=== PATIENT | male | born 1965 | race Caucasian/White ===

== ENCOUNTER → 2017-03-17 | Outpatient (CLI) | payer OTHER | LOC: FIMAGING 13:12 | PROVIDERS: ATTEND Podiatrist Foot & Ankle Surgery | DX: M21.70 Unequal limb length (acquired), unspecified site (principal) ==

== ENCOUNTER 2017-12-27 06:42 | Emergency (ER) | payer OTHER ==
[2017-12-27] MEDS ORDERED: NS 1,000 ML IV ONE (07:25)
[2017-12-27] MEDS ORDERED: KETOROLAC 15 MG/1 ML SDV IVP ONE (07:26)
--- NOTE | 2017-12-27 07:30 | EDPHY ---
H & P Stated Complaint: LOW BACK PAIN FOR PAST WK, DENIES TRAUMA Time Seen by Provider: 12/27/17 07:17 HPI/ROS: CHIEF COMPLAINT: Left-sided back pain HISTORY OF PRESENT ILLNESS: 52-year-old male presents with left-sided back pain. Onset of nausea 1 week ago, fairly persistent since then. This morning he awoke with severe left flank pain. The flank pain waxes and wanes and is currently moderate. The pain radiates to the LLQ. No groin pain and no urinary symptoms. No prior similar symptoms. He is especially concerned about a herniated lumbar disc, though the pain does not change with movement. No radicular pain, numbness or weakness. REVIEW OF SYSTEMS: RLQ pain yesterday, resolved today. Otherwise, complete 10 point ROS negative except at noted in the HPI - Personal History Current Tetanus/Diphtheria Vaccine: Yes Current Tetanus Diphtheria and Acellular Pertussis (TDAP): Yes - Medical/Surgical History Hx Asthma: No Hx Chronic Respiratory Disease: No Hx Diabetes: No Hx Cardiac Disease: No Hx Renal Disease: No Hx Cirrhosis: No Hx Alcoholism: No Hx HIV/AIDS: No Hx Splenectomy or Spleen Trauma: No Other PMH: LAMINECTOMY, SHOULDER , EYE SURGERY , - Social History Smoking Status: Never smoked - Physical Exam Exam: General Appearance: Alert, pleasant Eyes: Pupils equal and round, no conjunctival pallor or injection ENT, Mouth: Mucous membranes moist Neck: Normal inspection Respiratory: Lungs are clear to auscultation Cardiovascular: Regular rate and rhythm Gastrointestinal: Abdomen is soft, suprapubic and left upper quadrant tenderness, no peritoneal signs Back: Left CVA tenderness Neurological: A&O, nonfocal, normal gait Skin: Warm and dry, no rash Extremities: Nontender, no pedal edema Psychiatric: Mood and affect normal Constitutional: Initial Vital Signs Temperature (C) 36.3 C 12/27/17 06:46 Heart Rate 44 L 12/27/17 06:46 Respiratory Rate 18 12/27/17 06:46 Blood Pressure 163/105 H 12/27/17 06:46 O2 Sat (%) 100 12/27/17 06:46 O2 Delivery Mode Room Air Allergies/Adverse Reactions: hydrocortisone Allergy (Verified 12/27/17 21:11) Home Medications: Medication Instructions Recorded Acyclovir 800 mg PO 12/27/17 Allopurinol [Allopurinol 100 MG 100 mg PO DAILY 12/27/17 (*)] Hydrocodone/APAP 5/325 [[place] 1 - 2 tab PO Q4H PRN #10 tab 12/27/17 5/325] Loratadine [Claritin] 10 mg PO 12/27/17 Sertraline HCl [Zoloft 50mg (*)] 50 mg PO DAILY 12/27/17 Medical Decision Making - Diagnostics Imaging Results: Abdomen/Pelvis CT 12/27/17 07:26 Impression: Distal left ureteral calculus with associated obstructive uropathy. Bilateral nephrolithiasis is also noted. Results called and discussed with SUKHWINDER GALVAN M.D. on 12/27/2017 at 8:26 Imaging: Discussed imaging studies w/ call center receptionist Radiologist, I viewed and interpreted images myself ED Course/Re-evaluation: This patient presents with left-sided flank pain, consistent with renal colic. CT scan of the abdomen and pelvis ordered. Toradol 15 mg IV given. 8:45 a.m.-CT scan results discussed with the patient. UA reveals hematuria, no evidence of UTI. He is currently pain free. Abdomen is soft nontender. The pain resolved after the initial dose of Toradol. The Toradol may be masking his pain or he may have passed a kidney stone. The patient understands and will take ibuprofen as needed for pain. Follow-up instructions given. Differential Diagnosis: Differential diagnosis includes though it is not limited to appendicitis, cholecystitis, diverticulitis, pyelonephritis, bowel perforation, small bowel obstruction. - Data Points Laboratory Results: Laboratory Results 12/27/17 07:30 12/27/17 07:30 Medications Given: Discontinued Medications Sodium Chloride (Ns) 1,000 mls @ 0 mls/hr IV EDNOW ONE; Wide Open PRN Reason: Protocol Stop: 12/27/17 07:26 Last Admin: 12/27/17 07:33 Dose: 1,000 mls Ketorolac Tromethamine (Toradol) 15 mg IVP EDNOW ONE Stop: 12/27/17 07:27 Last Admin: 12/27/17 07:34 Dose: 15 mg Departure - Departure Disposition: Home, Routine, Self-Care Clinical Impression: Calculus of left kidney, Renal colic on left side Condition: Good Instructions: Ureteral Stones (ED) Additional Instructions: Ibuprofen 600 mg 3 times daily while the pain persists. Strain urine. Return for severe pain, vomiting or any concerns. Referrals: Rolando Duran MD [Primary Care Provider] - As per Instructions Prescriptions: Hydrocodone/APAP 5/325 [[place] 5/325] 1 - 2 tab PO Q4H PRN #10 tab PRN Reason: Pain, Moderate
[2017-12-27 07:49] LABS: PLATELET COUNT 219 10^3/uL (150-400)
[2017-12-27 09:10] VITALS: BP 118/62
== END 2017-12-27 09:08 | disposition home or self-care (01) ==
DX: N20.0 Calculus of kidney (principal); E86.9 Volume depletion, unspecified
CPT/HCPCS: 96374; J1885

== ENCOUNTER 2017-12-27 21:06 | Emergency (ER) | payer OTHER ==
[2017-12-27] MEDS ORDERED: HYDROmorphONE/DILAUDID 2 MG/ML INJ IVP ONE (21:28)
[2017-12-27] MEDS ORDERED: NS 1,000 ML IV ONE (21:28)
[2017-12-27] MEDS ORDERED: KETOROLAC 30 MG/1 ML SDV IVP ONE (21:28)
[2017-12-27] MEDS ORDERED: ONDANSETRON 4 MG/2 ML VIAL IVP ONE (21:28)
--- NOTE | 2017-12-27 21:30 | EDPHY ---
H & P Time Seen by Provider: 12/27/17 21:18 HPI/ROS: CHIEF COMPLAINT: Left-sided flank pain. HISTORY OF PRESENT ILLNESS: The patient was seen this morning in our emergency department for renal colic. He had CT scan performed that showed a 7 x 4 mm distal left ureteral calculus an additional multiple renal calculi bilaterally. He felt better and was discharged home but started having symptoms again around 8:00 p.m. while he was on the way to pharmacy to get pain medication prescription from this morning filled. Presents with severe left-sided flank pain which radiates around to his lower left abdomen. Waxing and waning, is severe. Not associated with fever chills urinary symptoms or trauma. Has nausea but no vomiting. Identical to previous symptoms he was seen for this morning. REVIEW OF SYSTEMS: Eye: no change in vision ENT: no sore throat Cardiac: no chest pain or syncope Pulmonary: no cough or SOB Abdomen: HPI Musculoskeletal: HPI Skin: no rash Neuro: no headache Constitutional: no fever : no urinary symptoms A comprehensive 10 point review of systems is otherwise negative aside from elements mentioned in the history of present illness. PAST MEDICAL HISTORY: Laminectomy and shoulder surgery, herpes on acyclovir, gout Social history: Nonsmoker General Appearance: Alert and conversant, cooperative. Moderately uncomfortable. Eyes: No scleral icterus. ENT, Mouth: Normal mucous membranes. Respiratory: Normal respiratory effort, breath sounds equal, lungs are clear to auscultation. Cardiovascular: Regular rate and rhythm. Gastrointestinal: Abdomen is soft and non tender. Normal male . Neurological: Alert, face symmetric, normal motor and sensory in extremities. Skin: Warm and dry, no rashes. Musculoskeletal: No peripheral edema. Psychiatric: Not agitated. Emergency Department course/MDM: Creatinine was 1.2 at 7:30 a.m.. Urinalysis showed red blood cells and no white blood cells. Discussed this could be recurrent pain from the stone seen on CT, or a one dropping down from the known stones in his left kidney on CT. He says he thinks he passed one and caught it in the strainer between then and now. Dilaudid 0.5, Zofran 4 mg, Toradol 15 mg, IV normal saline 2 L. 2219: Comfortable now, home with oxycodone and Zofran pre PACs, mandatory follow-up with Urology this week as maximum diameter of the stone on CT was 7 mm , was warned that it is possible he may need procedure to extract the stone if he does not pass spontaneously. Smoking Status: Never smoked Constitutional: Initial Vital Signs Temperature (C) 36.4 C 12/27/17 21:11 Heart Rate 51 L 12/27/17 21:11 Respiratory Rate 20 12/27/17 21:11 Blood Pressure 146/100 H 12/27/17 21:11 O2 Sat (%) 100 12/27/17 21:11 O2 Delivery Mode Room Air Allergies/Adverse Reactions: hydrocortisone Allergy (Verified 12/27/17 21:11) Home Medications: Medication Instructions Recorded Acyclovir 800 mg PO 12/27/17 Allopurinol [Allopurinol 100 MG 100 mg PO DAILY 12/27/17 (*)] Hydrocodone/APAP 5/325 [[place] 1 - 2 tab PO Q4H PRN #10 tab 12/27/17 5/325] Loratadine [Claritin] 10 mg PO 12/27/17 Sertraline HCl [Zoloft 50mg (*)] 50 mg PO DAILY 12/27/17 Medical Decision Making Differential Diagnosis: Differential diagnosis considered for flank pain including but not limited to musculoskeletal causes, kidney stone, pyelonephritis, shingles, and intra- abdominal causes such as diverticulitis and appendicitis. - Data Points Medications Given: Discontinued Medications Hydromorphone HCl (Dilaudid) 0.5 mg IVP EDNOW ONE Stop: 12/27/17 21:29 Last Admin: 12/27/17 21:36 Dose: 0.5 mg Sodium Chloride (Ns) 1,000 mls @ 0 mls/hr IV EDNOW ONE; Wide Open PRN Reason: Protocol Stop: 12/27/17 21:29 Last Admin: 12/27/17 21:34 Dose: 1,000 mls Ketorolac Tromethamine (Toradol) 15 mg IVP EDNOW ONE Stop: 12/27/17 21:29 Last Admin: 12/27/17 21:35 Dose: 15 mg Ondansetron HCl (Zofran) 4 mg IVP EDNOW ONE Stop: 12/27/17 21:29 Last Admin: 12/27/17 21:35 Dose: 4 mg Ondansetron HCl (Zofran Odt 4 Mg Prepack#2) 1 btl TAKEHOME EDNOW ONE Stop: 12/27/17 22:19 Last Admin: 12/27/17 22:28 Dose: 1 btl Oxycodone/Acetaminophen (Percocet 5/325mg Prepack#4) 1 btl TAKEHOME EDNOW ONE Stop: 12/27/17 22:19 Last Admin: 12/27/17 22:27 Dose: 1 btl Departure - Departure Disposition: Home, Routine, Self-Care Clinical Impression: Renal colic on left side Condition: Good Instructions: Oxycodone/Acetaminophen (By mouth), Ondansetron (By mouth), Renal Colic (ED) Referrals: Rolando Duran MD [Primary Care Provider] - As per Instructions Werner Rousseau MD [Medical Doctor] - 2-3 days, if not improved (this week in the office)
[2017-12-27] MEDS ORDERED: HYDROmorphONE/DILAUDID 1 MG/ML INJ ONE (21:32)
[2017-12-27] MEDS ORDERED: ONDANSETRON 4MG PREPACK#2 BTL TAKEHOME ONE (22:18)
[2017-12-27] MEDS ORDERED: OXYCODONE/APAP 5/325MG PREPACK#4 BTL TAKEHOME ONE (22:18)
[2017-12-27 22:31] VITALS: BP 139/73
== END 2017-12-27 22:29 | disposition home or self-care (01) ==
DX: N23 Unspecified renal colic (principal); E86.9 Volume depletion, unspecified
CPT/HCPCS: 96374; J1170; J1885; J2405

== ENCOUNTER 2017-12-29 13:44 | Observation (INO) | payer OTHER ==
[2017-12-29] MEDS ORDERED: LIDOCAINE 2% JELLY 20 ML (UROJECT) ONE (14:02)
[2017-12-29] MEDS ORDERED: IOPAMIDOL (ISOVUE-300) 150 ML BTL ONE (14:02)
[2017-12-29] MEDS ORDERED: OPIUM/BELLADONNA ALKALO SUPP PR ONE (14:02)
[2017-12-29] MEDS ORDERED: LR 1,000 ML IV ONE (14:06)
[2017-12-29] MEDS ORDERED: CEFAZOLIN 2 GM/DEXTROSE/100 ML BAG IV ONE (14:21)
--- NOTE | 2017-12-29 14:21 | PDANEPAE ---
ANE History of Present Illness 52 yo male with L ureteral stone for ureteroscopy. ANE Past Medical History - Cardiovascular History Hx Hypertension: No Hx Arrhythmias: No Hx Chest Pain: No Hx CHF / Valvular Disease: No Hx Palpitations: No - Pulmonary History Hx COPD: No Hx Asthma/Reactive Airway Disease: No Hx Recent Upper Respiratory Infection: No Hx Oxygen in Use at Home: No Hx Sleep Apnea: No - Endocrine History Hx Diabetes: No Hypothyroid: No Hyperthyroid: No Obesity: no - Renal History Hx Renal Disorders: Yes - Liver History Hx Hepatic Disorders: No - Neurological & Psychiatric Hx Hx Neurological and Psychiatric Disorders: Yes Neurological / Psychiatric History Comment: OCD/anxiety - Cancer History Hx Cancer: No - Congenital Disorder History Hx Congenital Disorders: No - GI History GERD: no Hx Gastrointestinal Disorders: No - Other Health History Other Health History: gout, HSV - Chronic Pain History Chronic Pain: No ANE Review of Systems Review of Systems: - Systems Constitutional: Reports: no symptoms Cardiac: Reports: no symptoms Respiratory: Reports: no symptoms Gastrointestinal: Reports: no symptoms ANE Patient History - Allergies Allergies/Adverse Reactions: hydrocortisone Allergy (Verified 12/29/17 14:09) - Home Medications Home Medications: Acyclovir 800 mg PO 12/27/17 [Last Taken Unknown] Allopurinol [Allopurinol 100 MG (*)] 100 mg PO DAILY 12/27/17 [Last Taken ] Loratadine [Claritin] 10 mg PO 12/27/17 [Last Taken Unknown] Sertraline HCl [Zoloft 50mg (*)] 50 mg PO DAILY 12/27/17 [Last Taken Unknown] - NPO status NPO Since - Liquids (Date): 12/29/17 NPO Since - Liquids (Time): 12:30 - Anes Hx Anes Hx: no prior problems - Smoking Hx Smoking Status: Never smoked Marijuana use: No - Alcohol Use Alcohol Use: Rarely ANE Labs/Vital Signs - Vital Signs Vital Signs: reviewed preoperatively; see RN documention for details ANE Physical Exam - Airway Neck exam: FROM Mallampati Score: Class 2 Mouth exam: normal dental/mouth exam - Pulmonary Pulmonary: clear to auscultation - Cardiovascular Cardiovascular: regular rate and rhythym - ASA Status ASA Status: II ANE Anesthesia Plan Anesthesia Plan: GA w LMA
[2017-12-29] MEDS ORDERED: LIDOCAINE 2% 5 ML SDV ONE (14:26)
[2017-12-29] MEDS ORDERED: DEXAMETHASONE 4 MG/ML VIAL ONE (14:26)
[2017-12-29] MEDS ORDERED: fentaNYL 100 MCG/2 ML INJ ONE (14:26)
[2017-12-29] MEDS ORDERED: PROPOFOL/EMULSION 500 MG/50 ML BOTTLE IV ONE (14:26)
[2017-12-29] MEDS ORDERED: ceFAZolin 2 GM/DEXTROSE 100 ML IV ONE (14:29)
--- NOTE | 2017-12-29 14:29 | PDHPUP ---
History & Physical Update H&P update statement: This history and physical update is based on an assessment of the patient which was completed after admission or registration (within 24 hours), but prior to the surgery/procedure. H&P update: H&P reviewed & patient examined, no change in patient's condition since H&P completed
[2017-12-29] MEDS ORDERED: NALOXONE HCL 0.4 MG/ML INJ IVP PRN (17:28)
[2017-12-29] MEDS ORDERED: LR 500 ML IV PRN (17:28)
[2017-12-29] MEDS ORDERED: oxyCODONE IR 5 MG TAB PO PRN (17:28)
[2017-12-29] MEDS ORDERED: DIAZEPAM 5 MG/ML 1 ML SYR IVP PRN (17:28)
[2017-12-29] MEDS ORDERED: ALBUTEROL 3 ML DEYVIAL IH PRN (17:28)
[2017-12-29] MEDS ORDERED: fentaNYL 100 MCG/2 ML INJ IVP PRN (17:28)
[2017-12-29] MEDS ORDERED: ONDANSETRON 4 MG/2 ML VIAL IVP PRN ×2 (17:28→21:25)
--- NOTE | 2017-12-29 17:32 | POSTANESTH ---
Post Anesthetic Evaluation Cardiovascular Status: Normal, Stable Respiratory Status: Normal, Stable Level of Consciousness/Mental Status: Can Participate in Eval, Moderately Sleepy Pain Control: Adequate, Prn Tx Ordered Nausea/Vomiting Control: Adequate, Prn Tx Ordered Complications Possibly Related to Anesthesia: None Noted
--- NOTE | 2017-12-29 21:21 | SOAPPROG ---
SOAP Progress Note Assessment/Plan: Patient s/p Left URS, laser, stent. Having low O2 sats in PACU. Admit to obs. Continue to wean O2 as able. Gen diet. PRN pain meds. Call Dr. Flores if questions. Cell [phone] 12/29/17 21:18 Objective: Vital Signs Temp Pulse Resp BP Pulse Ox 36.7 C 63 16 129/80 H 93 12/29/17 17:41 12/29/17 19:12 12/29/17 19:12 12/29/17 19:29 12/29/17 20:30 12/28/17 12/29/17 12/30/17 05:59 05:59 05:59 Intake Total 2420 Balance 2420 - Pending Discharge Pending Discharge Within 24 Hours: Yes Pending Discharge Date: 12/30/17 Pending Discharge Time: 11:00
[2017-12-29] MEDS ORDERED: KETOROLAC 30 MG/1 ML SDV IVP PRN (21:23)
[2017-12-29] MEDS ORDERED: OXYCODONE/APAP 5/325 TAB PO PRN (21:23)
[2017-12-29] MEDS: SENNOSIDES/DOCUSATE SODIUM TAB PO SCH (22:02)
[2017-12-29] MEDS: TAMSULOSIN HCL 0.4 MG CAP PO SCH (22:02)
[2017-12-30 07:57] VITALS: BP 132/77
[2017-12-30] MEDS: TAMSULOSIN HCL 0.4 MG CAP PO SCH (09:04)
[2017-12-30] MEDS: SENNOSIDES/DOCUSATE SODIUM TAB PO SCH (09:04)
== END 2017-12-30 10:23 | disposition home or self-care (01) ==
LOC: FSGY 13:44 → F1N 19:06
PROVIDERS: ADMIT Urology; ATTEND Urology
DX: N20.1 Calculus of ureter (principal); N20.0 Calculus of kidney; M10.9 Gout, unspecified; J45.909 Unspecified asthma, uncomplicated; Z84.1 Family history of disorders of kidney and ureter
CPT/HCPCS: 52356; 76001; C1726; C1758; C1769; C1894; G0378; 82365-90; C2625; J0690; J1100; J1885; J2405; J2704; J3010; Q9967

== ENCOUNTER 2018-01-02 16:12 | Emergency (ER) | payer OTHER ==
--- NOTE | 2018-01-02 16:34 | EDPHY ---
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 He is s/p Left URS, laser, stent placement on December 29. This was performed at [facility] by Dr. Germain. The patient has developed some colicky severe left flank pain over the past day. He did take some Toradol and Zofran prior to his arrival in the emergency department. His pain was a 10/10 but is now currently a 1/10. The patient denies any fever. He denies any history of heavy lifting or traumatic injury. The patient reports he has had resolved hematuria since his procedure. REVIEW OF SYSTEMS: A comprehensive 10 point review of systems is otherwise negative aside from elements mentioned in the history of present illness. Source: Patient - Medical/Surgical History Hx Asthma: No Hx Chronic Respiratory Disease: No Hx Diabetes: No Hx Cardiac Disease: No Hx Renal Disease: No Hx Cirrhosis: No Hx Alcoholism: No Hx HIV/AIDS: No Hx Splenectomy or Spleen Trauma: No Other PMH: LAMINECTOMY, SHOULDER , EYE SURGERY , - Social History Smoking Status: Never smoked - Physical Exam Exam: General Appearance: Alert, no distress Eyes: Pupils equal and round no pallor or injection ENT, Mouth: Mucous membranes moist Respiratory: There are no retractions, lungs are clear to auscultation Cardiovascular: Regular rate and rhythm Gastrointestinal: Mild left CVA tenderness, no anterior abdominal tenderness Neurological: 5/5 strength all 4 extremities Skin: Warm and dry, no rashes Musculoskeletal: Neck is supple nontender Extremities: symmetrical, full range of motion Constitutional: Initial Vital Signs Temperature (C) 37.0 C 01/02/18 16:14 Heart Rate 54 L 01/02/18 16:14 Respiratory Rate 28 H 01/02/18 16:14 Blood Pressure 132/90 H 01/02/18 16:14 O2 Sat (%) 98 01/02/18 16:14 O2 Delivery Mode Room Air Allergies/Adverse Reactions: hydrocortisone Allergy (Verified 12/29/17 14:09) Home Medications: Medication Instructions Recorded Hydrocodone/APAP 5/325 [[place] 1 - 2 tab PO Q4H PRN #10 tab 12/27/17 5/325] Loratadine [Claritin] 10 mg PO DAILY 12/27/17 Acyclovir [Zovirax 400 mg (*)] 400 mg PO DAILY 12/29/17 Allopurinol [Zyloprim] 300 mg PO HS 12/29/17 Ibuprofen [Motrin (*)] 200 - 600 mg PO Q6H PRN 12/29/17 Olopatadine HCl [Olopatadine HCl] 1 drop EACHEYE DAILY PRN 12/29/17 Ondansetron Odt [Zofran Odt 4 mg 4 mg PO Q4 PRN 12/29/17 (*)] Sertraline HCl [Zoloft 100mg (*)] 100 mg PO HS 12/29/17 Tamsulosin HCl [Flomax 0.4 MG (*)] 0.4 mg PO DAILY 12/29/17 Medical Decision Making - Diagnostics Imaging Results: CT abdomen pelvis without IV contrast: Images reviewed by myself and discussed with radiologist Dr. Morrison. There is no evidence of a ureteral injury, hydronephrosis or other significant intra-abdominal or retroperitoneal finding. . ED Course/Re-evaluation: I reviewed the patient's past medical records and procedure note from December 29. The patient was taken for CT scan of the abdomen pelvis without contrast which demonstrates a stent that is in place without evidence of urethral injury. There is no evidence of any left-sided urinary obstruction. The patient has normal laboratory studies in the emergency department. The patient took oral pain medications prior to arrival which resulted in significant improvement of his pain. Patient has nothing to suggest pyelonephritis given his lack of fever and significant flank pain. The patient is scheduled to see his urologist this . At this point time I do feel the patient can be discharged home as he has no evidence of an obvious surgical complication is well-appearing. Differential Diagnosis: Differential diagnosis considered includes nephrolithiasis, ureteral injury, hydronephrosis, pyelonephritis - Data Points Laboratory Results: Laboratory Results 01/02/18 16:30 01/02/18 16:30 01/02/18 01/02/18 16:30 16:30 WBC 9.01 10^3/uL 10^3/uL (3.80-9.50) RBC 4.61 10^6/uL 10^6/uL (4.40-6.38) Hgb 14.7 g/dL g/dL (13.7-17.5) Hct 43.1 % % (40.0-51.0) MCV 93.5 fL fL (81.5-99.8) MCH 31.9 pg pg (27.9-34.1) MCHC 34.1 g/dL g/dL (32.4-36.7) RDW 12.4 % % (11.5-15.2) Plt Count 228 10^3/uL 10^3/uL (150-400) MPV 9.8 fL fL (8.7-11.7) Neut % (Auto) 51.2 % % (39.3-74.2) Lymph % (Auto) 25.3 % % (15.0-45.0) [place] % (Auto) 6.1 % % (4.5-13.0) Eos % (Auto) 16.4 % H % (0.6-7.6) Baso % (Auto) 0.8 % % (0.3-1.7) Nucleat RBC Rel Count 0.0 % % (0.0-0.2) Absolute Neuts (auto) 4.61 10^3/uL 10^3/uL (1.70-6.50) Absolute Lymphs (auto) 2.28 10^3/uL 10^3/uL (1.00-3.00) Absolute Monos (auto) 0.55 10^3/uL 10^3/uL (0.30-0.80) Absolute Eos (auto) 1.48 10^3/uL H 10^3/uL (0.03-0.40) Absolute Basos (auto) 0.07 10^3/uL 10^3/uL (0.02-0.10) Absolute Nucleated RBC 0.00 10^3/uL 10^3/uL (0-0.01) Immature Gran % 0.2 % % (0.0-1.1) Immature Gran # 0.02 10^3/uL 10^3/uL (0.00-0.10) Sodium 143 mEq/L mEq/L (135-145) Potassium 4.2 mEq/L mEq/L (3.3-5.0) Chloride 103 mEq/L mEq/L (97-110) Carbon Dioxide 28 mEq/l mEq/l (22-31) Anion Gap 12 mEq/L mEq/L (8-16) BUN 21 mg/dL mg/dL (7-23) Creatinine 1.1 mg/dL mg/dL (0.7-1.3) Estimated GFR > 60 Glucose 88 mg/dL mg/dL (70-100) Calcium 9.2 mg/dL mg/dL (8.5-10.4) Medications Given: Discontinued Medications Sodium Chloride (Ns) 1,000 mls @ 0 mls/hr IV EDNOW ONE; Wide Open PRN Reason: Protocol Stop: 01/02/18 16:36 Last Admin: 01/02/18 16:47 Dose: 1,000 mls Departure - Departure Disposition: Home, Routine, Self-Care Clinical Impression: Calculus of left kidney Condition: Good Instructions: Urethral Stent Placement (DC) Additional Instructions: 1. Your CT scan demonstrates no evidence of an obstruction, stent migration or injury to the ureter. 2. Continue your regular outpatient pain medications as prescribed. 3. Please follow up with your urologist as scheduled this week. 4. Please return to the ED for severe intractable pain, fever, vomiting or other concerns. Referrals: Rolando Duran MD [Primary Care Provider] - As per Instructions
[2018-01-02] MEDS ORDERED: NS 1,000 ML IV ONE (16:35)
[2018-01-02 16:41] LABS: PLATELET COUNT 228 10^3/uL (150-400)
[2018-01-02 17:33] VITALS: BP 129/79
== END 2018-01-02 17:50 | disposition home or self-care (01) ==
DX: N20.0 Calculus of kidney (principal); E86.9 Volume depletion, unspecified

== ENCOUNTER 2018-01-06 08:00 | Day surgery (SDC) | payer OTHER ==
[2018-01-06] MEDS ORDERED: LR 1,000 ML IV ONE (08:17)
[2018-01-06] MEDS ORDERED: ceFAZolin 2 GM/DEXTROSE 100 ML IV ONE (08:20)
--- NOTE | 2018-01-06 08:51 | PDANEPAE ---
ANE History of Present Illness Ureteroscopy and stone removal, L kidney ANE Past Medical History - Cardiovascular History Hx Hypertension: No Hx Arrhythmias: No Hx Chest Pain: No Hx Coronary Artery / Peripheral Vascular Disease: No Hx CHF / Valvular Disease: No Hx Palpitations: No - Pulmonary History Hx COPD: No Hx Asthma/Reactive Airway Disease: No Hx Recent Upper Respiratory Infection: No Hx Oxygen in Use at Home: No Hx Sleep Apnea: No Sleep Apnea Screening Result - Last Documented: Negative Pulmonary History Comment: bad allergies enviromental - Neurologic History Hx Cerebrovascular Accident: No Hx Seizures: No Hx Dementia: No - Endocrine History Hx Diabetes: No Obesity: no - Renal History Hx Renal Disorders: No Renal History Comment: kidney stone - Liver History Hx Hepatic Disorders: No - Neurological & Psychiatric Hx Hx Neurological and Psychiatric Disorders: Yes Neurological / Psychiatric History Comment: OCD/anxiety - Cancer History Hx Cancer: No - Congenital Disorder History Hx Congenital Disorders: No - GI History GERD: no Hx Gastrointestinal Disorders: No - Other Health History Other Health History: gout, HSV - Chronic Pain History Chronic Pain: No - Surgical History Prior Surgeries: strabismus. r shoulder labrum tear ANE Review of Systems Review of Systems: - Exercise capacity METS (RN): 5 METS ANE Patient History - Allergies Allergies/Adverse Reactions: hydrocortisone Allergy (Verified 01/04/18 16:49) Hives - Home Medications Home Medications: Loratadine [Claritin] 12/27/17 [Last Taken 01/05/18] Acyclovir [Zovirax 400 mg (*)] 12/29/17 [Last Taken 01/05/18] Allopurinol [Zyloprim] 12/29/17 [Last Taken 01/04/18] Ibuprofen [Motrin (*)] 12/29/17 [Last Taken 12/28/17] Olopatadine HCl [Olopatadine HCl] 12/29/17 [Last Taken 01/04/18] Ondansetron Odt [Zofran Odt 4 mg (*)] 12/29/17 [Last Taken 01/04/18] Sertraline HCl [Zoloft 100mg (*)] 12/29/17 [Last Taken 01/04/18] Tamsulosin HCl [Flomax 0.4 MG (*)] 12/29/17 [Last Taken 01/05/18] Hydrocodone/APAP 5/325 [[place] 5/325] 01/04/18 [Last Taken Unknown] - NPO status NPO Since - Liquids (Date): 01/05/18 NPO Since - Liquids (Time): 22:00 NPO Since - Solids (Date): 01/05/18 NPO Since - Solids (Time): 20:30 - Anes Hx Hx Anesthesia Complications (with details): low oxygen levels post anesthesia - Smoking Hx Smoking Status: Never smoked Marijuana use: No - Alcohol Use Alcohol Use: Other (1-2 drinks/week) - Family Anes Hx Family Anes Hx: none Family Hx Anesthesia Complications: none ANE Labs/Vital Signs - Vital Signs Blood Pressure: 129/93 Heart Rate: 58 Respiratory Rate: 16 O2 Sat (%): 93 Height: 185.42 cm Weight: 86.183 kg ANE Physical Exam - Airway Neck exam: FROM Mallampati Score: Class 1 Mouth exam: normal dental/mouth exam - Pulmonary Pulmonary: clear to auscultation - Cardiovascular Cardiovascular: regular rate and rhythym - ASA Status ASA Status: II ANE Anesthesia Plan Anesthesia Plan: GA w LMA
[2018-01-06] MEDS ORDERED: MIDAZOLAM 2 MG/2 ML VIAL IVP ONE (08:57)
[2018-01-06] MEDS ORDERED: LIDOCAINE 2% JELLY 20 ML (UROJECT) ONE (09:00)
[2018-01-06] MEDS ORDERED: IOPAMIDOL (ISOVUE-M 300) 15 ML VIAL ONE (09:01)
[2018-01-06] MEDS ORDERED: OPIUM/BELLADONNA ALKALO SUPP PR ONE (09:01)
[2018-01-06] MEDS ORDERED: PROPOFOL 200 MG/20 ML VIAL ONE ×3 (09:06→10:24)
[2018-01-06] MEDS ORDERED: fentaNYL 100 MCG/2 ML INJ ONE (09:06)
--- NOTE | 2018-01-06 09:32 | PDGENHP ---
History and Physical - Chief Complaint bilateral stones - History of Present Illness Bilateral nephrolithiasis, here for stone treatment.s/p L URS, laser for obs distal stone. Has residual left stones and yet to be treated R stones. No complaints. PMH/PSH/SG/FH reviewed ROS 10 pt ROS performed, as stated in HPI,otherwise neg PE AFVSS gen NAD CV regular Lungs Normal effort Abd soft Ext warm History Information - Allergies/Home Medication List Allergies/Adverse Reactions: hydrocortisone Allergy (Verified 01/04/18 16:49) Hives Home Medications: Loratadine [Claritin] 12/27/17 [Last Taken 01/05/18] Acyclovir [Zovirax 400 mg (*)] 12/29/17 [Last Taken 01/05/18] Allopurinol [Zyloprim] 12/29/17 [Last Taken 01/04/18] Ibuprofen [Motrin (*)] 12/29/17 [Last Taken 12/28/17] Olopatadine HCl [Olopatadine HCl] 12/29/17 [Last Taken 01/04/18] Ondansetron Odt [Zofran Odt 4 mg (*)] 12/29/17 [Last Taken 01/04/18] Sertraline HCl [Zoloft 100mg (*)] 12/29/17 [Last Taken 01/04/18] Tamsulosin HCl [Flomax 0.4 MG (*)] 12/29/17 [Last Taken 01/05/18] Hydrocodone/APAP 5/325 [[place] 5/325] 01/04/18 [Last Taken Unknown] - Social History Smoking Status: Never smoked Alcohol Use: Other (1-2 drinks/week) Review of Systems Review of Systems: ROS: 10pt was reviewed & negative except for what was stated in HPI & below Physical Exam Physical Exam: Temp Pulse Resp BP Pulse Ox 37.0 C 58 L 16 129/93 H 93 01/06/18 08:23 01/06/18 08:55 01/06/18 08:55 01/06/18 08:55 01/06/18 08:55 Constitutional: no apparent distress Respiratory: no respiratory distress Gastrointestinal: soft, non-tender abdomen Genitourinary: no bladder fullness Skin: warm Neurologic: AAOx3 Psychiatric: interacting appropriately Assessment & Plan Assessment: A/P Bilateral URS, laser, stent. Ancef. Rationale/risks/benefits discussed, he desires to proceed. Consent received.
[2018-01-06] MEDS ORDERED: HYDROmorphONE/DILAUDID 1 MG/ML INJ IVP PRN (10:09)
[2018-01-06] MEDS ORDERED: ACETAMINOPHEN 500 MG TAB PO PRN (10:09)
[2018-01-06] MEDS ORDERED: fentaNYL 100 MCG/2 ML INJ IVP PRN (10:09)
[2018-01-06] MEDS ORDERED: HYDROCODONE/APAP 5/325 TAB PO PRN (10:09)
[2018-01-06] MEDS ORDERED: ONDANSETRON 4 MG/2 ML VIAL IVP PRN (10:09)
[2018-01-06] MEDS ORDERED: NALOXONE HCL 0.4 MG/ML INJ IVP PRN (10:09)
[2018-01-06] MEDS ORDERED: ONDANSETRON 4 MG/2 ML VIAL ONE (10:34)
--- NOTE | 2018-01-06 11:17 | POSTOPPROG ---
Post Op Note Date of Operation: 01/06/18 Surgeon: Tati Flores Hr Representative: N/A Anesthesiologist: Dr. Barillas Pre-op Diagnosis: bilateral nephrolithiasis Post-op Diagnosis: same, right tortuous mid/proximal ureter Indication: bilateral nephrolithiasis Procedure: cysto, bilateral ureteroscopy, left basket ext stones, RGP, stents Findings: residual left nephrolithiasis extracted, right tortuous ureter Inf/Abcess present in the surg proc area at time of surgery?: No Depth: Superfical (Skin SQ) EBL: Minimal Complications: None, patient tolerated well. Specimen(s): left stone fragments
[2018-01-06] MEDS ORDERED: KETOROLAC 15 MG/1 ML SDV ONE (12:30)
--- NOTE | 2018-01-06 12:31 | GOP ---
[f rep st] OPERATIVE REPORT DATE OF OPERATION: 01/06/2018 SURGEON: Tati Flores MD ANESTHESIOLOGIST: Rolando Barillas MD. PREOPERATIVE DIAGNOSIS: Bilateral nephrolithiasis. POSTOPERATIVE DIAGNOSIS: Bilateral nephrolithiasis along with right torturous mid proximal ureter. PROCEDURE PERFORMED: Cystoscopy, bilateral retrograde pyelogram, left bilateral ureteroscopy, left basket extraction of stone, bilateral stent placement, 6-Samoan multivariable. FINDINGS: Left residual stones were extracted and sent to Pathology. The right ureter was very torturous mid and proximal, and I was not able to gain access to the kidney with a 12/14-Samoan ureteral access sheath. ESTIMATED BLOOD LOSS: Minimal. INDICATIONS: Bilateral nephrolithiasis. The patient came to me a week ago with a very symptomatic left obstructing distal ureteral stone. This was treated with ureteroscopy, and I also went up into the left kidney and treated stones. There was quite a bit of stone burden. So today, I went back with the intention of doing a left ureteroscopy to do a 2nd look. He also had nonobstructing right stones in the kidney, and he desired those treated as well. The rationale, risks, and benefits of the procedure including bleeding, infection, pain, dysuria, injury to the urethra, the bladder, the ureters, need for subsequent procedures, were all discussed with him in detail. He understood and agreed to proceed. DESCRIPTION OF PROCEDURE: The patient was taken back to the cystoscopy suite, placed on the cystoscopy table in a supine position. General anesthesia induced without complication. Time-out performed and core measures satisfied including placement of a Cynthia Hugger, SCDs, and administration of 2 g Ancef antibiotics. He was brought to the end of the table, placed in a dorsal lithotomy position. All pressure points padded. Genitalia draped and prepped in a standard surgical fashion with Betadine. A rigid cystoscope easily cannulated the urethral meatus and was advanced atraumatically into the bladder. The left ureteral stent distal end was grasped and the tip externalized. A 0.035 Glidewire placed through the stent, and the wire advanced up into the left collecting system. Then, with the help of cystoscope , the stent was then removed, leaving the wire in place. Then with the help of the cystoscope, another 0.035 Glidewire was placed, and then a 12/14-Samoan ureteral access sheath was advanced over the working wire with fluoroscopic guidance up into the left proximal ureter. The ureteral scope was advanced through the sheath and into the kidney, and there were smaller stones that were basket extracted and some larger fragments that were also basket extracted. None of these fragments required laser. I looked through all the calices which were much easier to look at at this second- look procedure due to decreased edema and swelling of the renal pelvis, and I did clear him of stones. He did of note, though, have several intraparenchymal appearing calcifications in the papillae. At this point, I feel I cleared his left side of stone. I removed the access sheath with the scope together, examining the wall of the ureter and the ureter looked healthy except for the prior area of balloon dilation which still looked edematous and healing. The safety wire was still up and then with the help of cystoscopy and fluoroscopy, I placed a 6-Samoan multivariable stent on the left. Of note, I also did a retrograde pyelogram before removing my sheath and my stent on the left. Next, I focused attention on the right I cannula. I used the cystoscope to cannulate the right ureteral orifice, was able to advance two 0.035 glidewires into the right collecting system with fluoroscopic guidance. Then I attempted to pass a 12/14-Samoan ureteral access sheath over the working wire and met about into the mid to proximal ureter where the sheath would not advance any further. I then removed the sheath together leaving the wire in place and then just attempted to advance the inner sheath, which was a 12-Samoan, and this advanced easily and without any difficulty up into the right renal pelvis. So then I left this there for just a minute, letting the ureter hopefully passively dilate. I then removed that inner sheath, leaving the wire in place, and again attempted to do a 12/14-Samoan ureteral access sheath, and I would again get resistance in the same mid to proximal ureteral area. I decided to take out the inner sheath, leave the outer sheath, and then advance the ureteroscope through the sheath to examine what was leading to the obstruction or the impasse, and the ureter was just very torturous at this stage. It prevented thus my sheath from being advanced up, so I did a retrograde and confirmed the tortuosity of the ureter. I then replaced my wire into the right collecting system. Then I replaced the inner sheath and advanced a superstiff Amplatz wire, hoping that this would help straighten out the ureter for advancement. The Amplatz Super Stiff wire now all the way up into the collecting system had my sheath still in place, and I again attempted to advance my sheath with the inner and outer sheath together with fluoroscopic guidance, and still would not advance. So in the desire for safety and not injuring the ureter at this point, I felt that I needed to place a stent and allow some passive straightening and dilation of the ureter for a future procedure. I did do another retrograde to verify location of the renal pelvis for stent placement. I removed the sheath and scope together examining the wall of the ureter and it looked well, not edematous. Then I advanced a 6-Samoan multivariable stent with fluoroscopic and cystoscopic guidance over the safety 0.035 Glidewire. I removed the Amplatz wire and the stent had a good position with nice curl in the renal pelvis and nice curl in the bladder. His bladder was then emptied. A belladonna opium suppository placed, lidocaine jelly placed, and at this point, the procedure considered complete. He was awoken from anesthesia and transferred to PACU in good condition. Will attempt reaccess of his right renal pelvis and right kidney stones in a week. COMPLICATIONS: None. The patient tolerated the procedure well. /[id number]/MODL MTDD
[2018-01-06] MEDS ORDERED: KETOROLAC 30 MG/1 ML SDV IVP ONE (12:45)
[2018-01-06 13:46] VITALS: BP 138/90
--- NOTE | 2018-01-07 19:12 | POSTANESTH ---
Post Anesthetic Evaluation Cardiovascular Status: Normal, Stable Respiratory Status: Normal, Stable Level of Consciousness/Mental Status: Can Participate in Eval Pain Control: Adequate, Prn Tx Ordered Nausea/Vomiting Control: Adequate, Prn Tx Ordered Complications Possibly Related to Anesthesia: None Noted
== END 2018-01-06 13:47 | disposition home or self-care (01) ==
LOC: FSGY 08:00
PROVIDERS: ATTEND Urology
PROC: 0T788DZ Dilation of Bilateral Ureters with Intraluminal Device, Via Natural or Artificial Opening Endoscopic (ICD-10-PCS; principal; 2018-01-06 09:15)
PROC: 0TC18ZZ Extirpation of Matter from Left Kidney, Via Natural or Artificial Opening Endoscopic (ICD-10-PCS; principal; 2018-01-06 09:15)
DX: N20.0 Calculus of kidney (principal)
CPT/HCPCS: 52332; 52352; 76001; C1758; C1769; C1894; 82365-90; C2625; J0690; J1885; J2250; J2405; J2704; J3010; Q9967

== ENCOUNTER 2018-01-13 13:59 | Day surgery (SDC) | payer OTHER ==
[2018-01-13] MEDS ORDERED: LR 1,000 ML IV ONE (14:12)
--- NOTE | 2018-01-13 14:37 | PDANEPAE ---
ANE Past Medical History - Cardiovascular History Hx Hypertension: No Hx Arrhythmias: No Hx Chest Pain: No Hx Coronary Artery / Peripheral Vascular Disease: No Hx CHF / Valvular Disease: No Hx Palpitations: No Cardiovascular History Comment: low HR post op - Pulmonary History Hx COPD: No Hx Asthma/Reactive Airway Disease: No Hx Recent Upper Respiratory Infection: No Hx Oxygen in Use at Home: No Hx Sleep Apnea: No Sleep Apnea Screening Result - Last Documented: Negative Pulmonary History Comment: bad enviromental allergies. low O2 levels post op - Neurologic History Hx Cerebrovascular Accident: No Hx Seizures: No Hx Dementia: No - Endocrine History Hx Diabetes: No Hypothyroid: No Hyperthyroid: No Obesity: no - Renal History Hx Renal Disorders: Yes Renal History Comment: kidney stones. previous surgeries 12/29/17 and 01/06/18 - Liver History Hx Hepatic Disorders: No - Neurological & Psychiatric Hx Hx Neurological and Psychiatric Disorders: Yes Neurological / Psychiatric History Comment: OCD/anxiety - Cancer History Hx Cancer: No - Congenital Disorder History Hx Congenital Disorders: No - GI History Hx Gastrointestinal Disorders: No - Other Health History Other Health History: gout - Chronic Pain History Chronic Pain: No - Surgical History Prior Surgeries: left ureteroscopy basket extraction of stone, right diagnostic ureteroscopy and stent placement. 12/29/17 cystoscopy, right pyelogram, left ureteroscopy with stent placed and stone removal with Fronczak. strabismus. r shoulder labrum tear ANE Review of Systems Review of Systems: - Exercise capacity METS (RN): 5 METS ANE Patient History - Allergies Allergies/Adverse Reactions: hydrocortisone Allergy (Verified 01/04/18 16:49) Hives - Home Medications Home Medications: Loratadine [Claritin] 12/27/17 [Last Taken 01/13/18] Acyclovir [Zovirax 400 mg (*)] 12/29/17 [Last Taken 01/13/18] Allopurinol [Zyloprim] 12/29/17 [Last Taken 01/12/18] Ibuprofen [Motrin (*)] 12/29/17 [Last Taken 01/06/18] Olopatadine HCl [Olopatadine HCl] 12/29/17 [Last Taken 01/06/18] Ondansetron Odt [Zofran Odt 4 mg (*)] 12/29/17 [Last Taken 01/06/18] Sertraline HCl [Zoloft 100mg (*)] 12/29/17 [Last Taken 01/12/18] Tamsulosin HCl [Flomax 0.4 MG (*)] 12/29/17 [Last Taken 01/13/18 07:30] Hydrocodone/APAP 5/325 [[place] 5/325] 01/04/18 [Last Taken 12/30/17] - NPO status NPO Since - Liquids (Date): 01/13/18 NPO Since - Liquids (Time): 07:30 NPO Since - Solids (Date): 01/12/18 NPO Since - Solids (Time): 20:30 - Smoking Hx Smoking Status: Never smoked - Family Anes Hx Family Hx Anesthesia Complications: none ANE Labs/Vital Signs - Vital Signs Blood Pressure: 122/88 Heart Rate: 73 Respiratory Rate: 16 O2 Sat (%): 92 Height: 185.42 cm Weight: 86.183 kg ANE Physical Exam - Airway Neck exam: FROM Mallampati Score: Class 1 Mouth exam: normal dental/mouth exam - Pulmonary Pulmonary: no respiratory distress - Cardiovascular Cardiovascular: regular rate and rhythym - ASA Status ASA Status: II ANE Anesthesia Plan Anesthesia Plan: GA w LMA
[2018-01-13] MEDS ORDERED: LIDOCAINE 2% JELLY 20 ML (UROJECT) ONE (15:15)
[2018-01-13] MEDS ORDERED: IOPAMIDOL (ISOVUE-M 300) 15 ML VIAL ONE ×2 (15:15→15:18)
--- NOTE | 2018-01-13 15:24 | PDGENHP ---
History & Physical Chief Complaint: right nephrolithiasis History of Present Illness: 52M w R nephrolithiasis, here for laser lithotripsy. Has stent from 1 week ago as was unable to gain access to stones. No complaints, no concerns of UTI. ROS 10Pt ROS performed, as stated in HPI, othewise neg Pertinent Past, Social, Family History: Reviewed Relevant Physical Exam: AFVSS. Gen NAD A&O. CV regular. Lungs Normal effort. Abd soft. Ext warm Cardiorespiratory Assessment: Regular
[2018-01-13] MEDS ORDERED: ceFAZolin 2 GM/DEXTROSE 100 ML IV ONE (15:25)
[2018-01-13] MEDS ORDERED: fentaNYL 100 MCG/2 ML INJ ONE (15:34)
[2018-01-13] MEDS ORDERED: PROPOFOL 200 MG/20 ML VIAL ONE ×3 (15:35→16:18)
[2018-01-13] MEDS ORDERED: LIDOCAINE 2% 5 ML SDV ONE (15:35)
[2018-01-13] MEDS ORDERED: OPIUM/BELLADONNA ALKALO SUPP PR ONE (16:00)
[2018-01-13] MEDS ORDERED: ONDANSETRON 4 MG/2 ML VIAL ONE (16:19)
[2018-01-13] MEDS ORDERED: DEXAMETHASONE 4 MG/ML VIAL ONE (16:19)
[2018-01-13] MEDS ORDERED: KETOROLAC 30 MG/1 ML SDV ONE (16:20)
[2018-01-13] MEDS ORDERED: GLYCOPYRROLATE 0.2 MG/1 ML VIAL ONE ×3 (16:21→16:24)
[2018-01-13] MEDS ORDERED: PHENYLEPHRINE HCL 100 MCG/ML SYR ONE (16:27)
[2018-01-13] MEDS ORDERED: NALOXONE HCL 0.4 MG/ML INJ IVP PRN (16:52)
[2018-01-13] MEDS ORDERED: PROMETHAZINE HCL 25 MG/ML INJ IVP PRN (16:52)
[2018-01-13] MEDS ORDERED: LR 500 ML IV PRN (16:52)
[2018-01-13] MEDS ORDERED: HYDROCODONE/APAP 5/325 TAB PO PRN (16:52)
[2018-01-13] MEDS ORDERED: fentaNYL 100 MCG/2 ML INJ IVP PRN (16:52)
--- NOTE | 2018-01-13 17:32 | POSTOPPROG ---
Post Op Note Date of Operation: 01/13/18 Surgeon: Tati Flores Anesthesia: LMA Pre-op Diagnosis: right nephrolithiasis, left retained ureteral stent Post-op Diagnosis: same Indication: right nephrolithiasis, right retained uerteral stent Procedure: cysto, left stent removal, R URS, laser,stent, RGP Findings: left retained stent, R renal stone Inf/Abcess present in the surg proc area at time of surgery?: No Depth: Organ Space (bilateral collecting systems) EBL: Minimal Complications: None, patient tolerated procedure well. Specimen(s): Stone fragments
[2018-01-13 18:25] VITALS: BP 151/101
--- NOTE | 2018-01-13 19:11 | GOP ---
[f rep st] OPERATIVE REPORT DATE OF OPERATION: 01/13/2018 SURGEON: Tati Flores MD ANESTHESIA: General. PREOPERATIVE DIAGNOSIS: Left retained ureteral stent and right nephrolithiasis. POSTOPERATIVE DIAGNOSIS: Left retained ureteral stent and right nephrolithiasis. PROCEDURE PERFORMED: Cystoscopy, removal of left stent, right ureteroscopy, laser lithotripsy, basket extraction of stone, retrograde pyelogram, intraoperative fluoroscopy, and placement of a stent 6-Faroese by multivariable. FINDINGS: SPECIMENS: Kidney stones. ESTIMATED BLOOD LOSS: Minimal. INDICATIONS: The patient is a very pleasant 52-year-old gentleman with history of bilateral stones. He presents today for removal of his right renal stones. We attempted renal stone removal 1 week ago, but was unable to gain access due to narrow ureter, and he had a stent in for a week and will proceed with clearance of the stones today. He understood that the risks include bleeding, infection, pain, injury to the bladder, urethra, ureters, need for subsequent procedures, and need for stent. He understood these and agreed to proceed. DESCRIPTION OF PROCEDURE: The patient was taken back to the cystoscopy suite, placed on the cystoscopy table in a supine position. General anesthesia induced without complication. Time-out performed and core measures satisfied including placement of a Cynthia Hugger, SCDs, and administration of 2 g Ancef antibiotics. He was brought to the end of the table, placed in dorsal lithotomy position. All pressure points were padded. Genitalia draped and prepped in a standard surgical fashion with Betadine. A rigid cystoscope easily cannulated the urethral meatus and was advanced atraumatically into the bladder. The left ureteral stent was grasped with a grasper and externalized intact. The cystoscope was readvanced into the bladder again and the right distal end of the stent was grasped and brought to the urethral meatus. A wire was advanced through the lumen of the stent with fluoroscopic guidance into the right collecting system. The stent was removed, leaving the wire in place. Then, a 2nd wire was placed with cystoscopy and intraoperative fluoroscopy in the right collecting system. A 12/14 Faroese ureteral access sheath was advanced over one of the working wires with fluoroscopic guidance and advanced easily and smoothly up into the right renal pelvis. Then, a flexible ureteroscope was advanced without difficulty into the right collecting system. Two large stones were found which corresponded to what I saw on the CT scan. These stones were lasered and then the fragments basket extracted. I also did find another sizable stone that was covered in renal epithelium. I lasered this gently and the stone was extracted and removed. At the end of the procedure, I had basketed all of the basketable fragments. What remained was a very small amount of dust because I really did not do much dusting and rather broke stones into basketable size fragments i order to best clear him of stones. I was very happy with the stone removal, and I felt I did clear him of stone. A retrograde pyelogram was then performed, calyces were delicate, sharp and normal, and I felt I did investigate all of the calices. At this point, the wire was still up, and I removed the sheath and the scope together examining the wall of the ureter and the wall of the ureter appeared overall healthy, but just mildly edematous from the prior stent. The wire was still up and then with cystoscopic and fluoroscopic guidance, I placed a 6-Faroese multivariable stent without difficulty with a nice curl in the renal pelvis and a nice curl in the bladder. His bladder was then emptied. Lidocaine jelly placed per urethra and a belladonna opium suppository placed per rectum. At this point, the procedure was considered complete. He was transferred to PACU in good condition, and he will get his stent out in 4 days in my clinic. /[id number]/MODL MTDD
== END 2018-01-13 18:23 | disposition home or self-care (01) ==
LOC: FSGY 13:59
PROVIDERS: ATTEND Urology
DX: N20.1 Calculus of ureter (principal); Z87.442 Personal history of urinary calculi
CPT/HCPCS: 52356; 76001; C1769; C1894; 82365-90; C2625; J0690; J1100; J1885; J2370; J2405; J2704; J3010; Q9967

== ENCOUNTER → 2018-05-03 | Outpatient (CLI) | payer OTHER | LOC: BMCIMAGING 16:39 | PROVIDERS: ATTEND Internal Medicine | DX: K22.8 Other specified diseases of esophagus (principal) ==